=== PATIENT | female | born 1960 | race Caucasian/White ===

== ENCOUNTER 2022-03-05 12:19 | Outpatient (CLI) | payer OTHER ==
--- NOTE | 2022-03-05 16:20 | XRAY Report ---
PROCEDURE: Hips 2V BILAT INDICATIONS: XRAY TECHNIQUE: 2 views of each hip were acquired. COMPARISON: None FINDINGS: Bones: No fractures or dislocations. No suspicious bony lesions. The visualized pelvic ring appear s intact. Mild joint space narrowing and periarticular osteophyte formation at the bilateral hip beata nts. Soft tissues: No suspicious soft tissue calcifications or masses. IMPRESSION: Bilateral hip osteoarthritis. No acute fracture. No osseous lesion. If symptoms and/or clinical suspi cion for pathology continue, further assessment with repeat plain films, or advanced imaging (e.g., C T, MRI, or bone scan) is recommended for further assessment. Reviewed by: Lucinda Cedillo MD on 03/05/2022 4:19 PM PDT Approved by: Lucinda Cedillo MD on 03/05/2022 4:19 PM PDT Station ID: [id number]
--- NOTE | 2022-03-05 16:43 | XRAY Report ---
PROCEDURE: Knee 3 View BILAT INDICATIONS: Bilateral knee pain. TECHNIQUE: 3 views of the right and left knee(s) were acquired. COMPARISON: None. FINDINGS: Bones: No fractures or dislocations. No suspicious bony lesions. Moderate bilateral knee osteophyt ic degenerative changes including marginal osteophytosis, and mild joint space narrowing. Soft tissues: Trace bilateral suprapatellar joint effusions. No suspicious soft tissue calcifications . IMPRESSION: Moderate bilateral knee tricompartmental osteoarthritis. Reviewed by: Eileen Ryan MD, PhD on 03/05/2022 4:42 PM PDT Approved by: Eileen Ryan MD, PhD on 03/05/2022 4:42 PM PDT Station ID: [id number]
--- NOTE | 2022-03-05 16:45 | XRAY Report ---
PROCEDURE: Thoracic Spine 2 View INDICATIONS: Chronic back pain. TECHNIQUE: 3 views of the thoracic spine were acquired. COMPARISON: None. FINDINGS: Bones: No fractures or dislocations. No suspicious bony lesions. 12 pairs of ribs are noted, and a ppear intact where visualized. S-shaped scoliosis of the thoracolumbar spine. Moderate degenerative d isc changes noted throughout the thoracic spine. Mild facet hypertrophy noted in the mid and lower th oracic spine. Soft tissues: No paravertebral stripe thickening. IMPRESSION: 1. Multilevel degenerative disc disease. 2. Multilevel facet arthropathy. 3. No fracture. No acute osseous lesion. If there is continued clinical concern for pathology, then M RI should be considered for further evaluation. 4. S-shaped scoliosis. Reviewed by: Eileen Ryan MD, PhD on 03/05/2022 4:43 PM PDT Approved by: Eileen Ryan MD, PhD on 03/05/2022 4:43 PM PDT Station ID: [id number]
--- NOTE | 2022-03-05 16:53 | XRAY Report ---
PROCEDURE: Cervical Spine 2 View INDICATIONS: Pain TECHNIQUE: 3 view(s) of the cervical spine were acquired. COMPARISON: None. FINDINGS: Bones: No fractures or dislocations to the T1 level. The lateral masses of C1 appear intact on the odontoid view. No suspicious bony lesions. Moderate C5-C6 degenerative disc changes. Mild C4-C5 and C6-C7 degenerative disc changes. Mild C5-C6 and C6-7 C7 facet arthropathy. Moderate C7-T1 facet arthr opathy. Soft tissues: No prevertebral soft tissue swelling. IMPRESSION: 1. Multilevel degenerative disc disease. 2. Multilevel facet arthropathy. 3. No fracture. No acute osseous lesion. If there is continued clinical concern for pathology, then M RI should be considered for further evaluation. Reviewed by: Eileen Ryan MD, PhD on 03/05/2022 4:51 PM PDT Approved by: Eileen Ryan MD, PhD on 03/05/2022 4:51 PM PDT Station ID: [id number]
== END 2022-03-05 12:20 | disposition home or self-care (01) ==
LOC: DI.S 12:19
PROVIDERS: ATTEND Nurse Practitioner Family
DX: M16.0 Bilateral primary osteoarthritis of hip (principal); M17.0 Bilateral primary osteoarthritis of knee; M51.34 Other intervertebral disc degeneration, thoracic region; M47.814 Spondylosis without myelopathy or radiculopathy, thoracic region; M41.9 Scoliosis, unspecified; M50.321 Other cervical disc degeneration at C4-C5 level; M47.812 Spondylosis without myelopathy or radiculopathy, cervical region

== ENCOUNTER 2022-05-14 13:08 | Outpatient (CLI) | payer OTHER ==
[2022-05-14 15:54] LABS: ALBUMIN 4.4 g/dL (3.2-5.5); ALBUMIN/GLOBULIN RATIO 1.9 (1.0-2.2); CALCIUM 9.3 mg/dL (8.5-10.3); CREATININE 0.6 mg/dL (0.4-1.0); POTASSIUM 3.5 mmol/L (3.5-5.0); TOTAL PROTEIN 6.7 g/dL (6.7-8.2)
== END 2022-05-14 13:09 | disposition home or self-care (01) ==
LOC: LAB.S 13:08
PROVIDERS: ATTEND Nurse Practitioner Family
DX: M19.90 Unspecified osteoarthritis, unspecified site (principal)
CPT/HCPCS: 36415; 80053

== ENCOUNTER 2023-06-28 08:00 | Outpatient (CLI) | payer MEDICARE, OTHER ==
--- NOTE | 2023-06-28 15:44 | XRAY Report ---
PROCEDURE: Foot 3 View RT INDICATIONS: RIGHT FOOT PAIN TECHNIQUE: 3 views of the foot were acquired. COMPARISON: None. FINDINGS: Bones: Stable alignment of fifth metatarsal base fracture. Slight increased diastases of fracture fr agments. No suspicious bony lesions. Prominent first MTP arthritic narrowing with periarticular ost eophytes and subchondral sclerosis. Scattered IP narrowing is present. Calcaneal spur is present. Soft tissues: No suspicious soft tissue calcifications or masses. IMPRESSION: Degenerative changes most lower at the first MTP joint. Slight increased diastases of fracture fragments of fifth metatarsal base fracture. Reviewed by: Dalila Landry MD on 06/28/2023 3:42 PM PDT Approved by: Dalila Landry MD on 06/28/2023 3:42 PM PDT Station ID: [id number]
== END 2023-06-28 23:59 | disposition home or self-care (01) ==
LOC: DI.WOS 08:00
PROVIDERS: ATTEND Physician Assistant Surgical
DX: S92.351D Displaced fracture of fifth metatarsal bone, right foot, subsequent encounter for fracture with routine healing (principal); M19.071 Primary osteoarthritis, right ankle and foot